=== PATIENT | female | born 1945 | race Asian ===

== ENCOUNTER 2017-02-20 13:35 | Emergency (ER) | payer OTHER ==
[~2017-02-20] VITALS: Ht 157.5 cm; Wt 60.0 kg
[2017-02-20] MEDS ORDERED: LOSA25TA21 PO (14:03)
[2017-02-20] MEDS ORDERED: ATOR10TA84 PO (14:03)
[2017-02-20] MEDS ORDERED: METF500T4 PO (14:03)
[2017-02-20] MEDS ORDERED: OxyCODONE HCL/ACETAMINOPHEN 5-325 MG TABLET PO ONE (16:15)
[2017-02-20] MEDS ORDERED: ACETAMINOPHEN 325 MG TABLET PO ONE (16:30)
[2017-02-20] MEDS ORDERED: PERTUSS(ACELL),DIPH,TET VAC/PF 0.5 ML VIAL IM ONE (17:00)
[2017-02-20 17:27] VITALS: BP 135/75
== END 2017-02-20 17:29 | disposition home or self-care (01) ==
LOC: EMS 13:39
DX: S16.1XXA Strain of muscle, fascia and tendon at neck level, initial encounter (principal); S00.83XA Contusion of other part of head, initial encounter; E11.9 Type 2 diabetes mellitus without complications; E78.00 Pure hypercholesterolemia, unspecified; I10 Essential (primary) hypertension; Y08.89XA Assault by other specified means, initial encounter; Y93.89 Activity, other specified; Y92.89 Other specified places as the place of occurrence of the external cause; Y99.8 Other external cause status
CPT/HCPCS: 90471; 90715; 99283